=== PATIENT | female | born 1990 | race American Indian/Alaskan Native ===

== ENCOUNTER 2020-06-21 21:43 | Emergency (ER) | payer OTHER ==
[2020-06-21 22:26] LABS: Basophils # (Auto) 0.1 K/mm3 (0.0-0.1); Eosinophils # (Auto) 0.1 K/mm3 (0.0-0.4); Eosinophils % (Auto) 1.5 % (0.0-4.3); Hematocrit 33.8 % (30.3-42.9); Hemoglobin 11.3 gm/dl (10.1-14.3); Lymphocytes # (Auto) 2.5 K/mm3 (1.2-5.4); Lymphocytes % (Auto) 35.8 % (13.4-35.0); Mean Corpuscular HGB Conc 33 % (30-34); Mean Corpuscular Volume 82 fl (79-97); Monocytes # (Auto) 0.6 K/mm3 (0.0-0.8); Monocytes % (Auto) 8.1 % (0.0-7.3); Platelet Count 359 K/mm3 (140-440); Red Blood Count 4.11 M/mm3 (3.65-5.03); Red Cell Distribution Width 14.4 % (13.2-15.2)
--- NOTE | 2020-06-21 22:58 | Emergency Department Report ---
ED Female HPI - General Chief complaint: Vaginal Bleeding Stated complaint: 5 WEEKS ;POSSIBLE MISCARRIAGE Source: patient Mode of arrival: Ambulatory Limitations: No Limitations - History of Present Illness Initial comments: Patient is a A1 30-year-old -Chinese female who is approximately 4 weeks gestation who presents to the ED with complaint of acute onset vaginal bleeding for 1 hour. Patient states that had 2 positive tests at home 3 days ago and while driving around she started feeling a gush in her underwear and when she looked she realized that she was bleeding. Patient states that she came to the ED for evaluation. Patient states that her LMP was May 16 through the 2020. Patient denies dizziness, syncope, chest pain, abdominal pain, nausea and vomiting, diarrhea, dysuria, urinary frequency and urgency, back pain, cough, sore throat, shortness of breath. MD Complaint: vaginal bleeding, pelvic pain -: Sudden, hour(s) (1) Location: suprapubic, other (vaginal) Severity: mild Severity scale (0 -10): 0 Quality: cramping, dull Consistency: intermittent Improves with: none Worsens with: none Are you Now?: Yes (Approximately 4 weeks gestation) Associated Symptoms: denies other symptoms, vaginal bleeding. denies: vaginal discharge, abdominal pain, nausea/vomiting, fever/chills, dysuria, hematuria, rash, seizure, shortness of breath, syncope, weakness - Related Data Sexually active: Yes : 3 Para: 1 A: 1 Previous Rx's Medication Instructions Recorded Last Taken Type cephALEXin [Keflex] 500 mg PO Q8HR #30 cap 06/22/20 Unknown Rx Allergies Allergy/AdvReac Type Severity Reaction Status Date / Time No Known Allergies Allergy Unverified 06/21/20 21:59 ED Review of Systems ROS: Stated complaint: 5 WEEKS ;POSSIBLE MISCARRIAGE Other details as noted in HPI Constitutional: denies: chills, fever Eyes: denies: eye pain, eye discharge, vision change ENT: denies: ear pain, throat pain Respiratory: denies: cough, shortness of breath, wheezing Cardiovascular: denies: chest pain, palpitations Endocrine: no symptoms reported Gastrointestinal: denies: abdominal pain, nausea, diarrhea Genitourinary: abnormal menses (Vaginal bleeding). denies: urgency, dysuria, discharge Musculoskeletal: denies: back pain, joint swelling, arthralgia Skin: denies: rash, lesions Neurological: denies: headache, weakness, paresthesias Psychiatric: denies: anxiety, depression Hematological/Lymphatic: denies: easy bleeding, easy bruising ED Past Medical Hx - Past Medical History Previous Medical History?: Yes Additional medical history: Sickle Cell Trait - Surgical History Past Surgical History?: Yes Additional Surgical History: - Social History Smoking Status: Never Smoker Substance Use Type: None - Medications Home Medications: Home Medications Medication Instructions Recorded Confirmed Last Taken Type cephALEXin [Keflex] 500 mg PO Q8HR #30 cap 06/22/20 Unknown Rx ED Physical Exam - General Limitations: No Limitations General appearance: alert, in no apparent distress - Head Head exam: Present: atraumatic, normocephalic, normal inspection - Eye Eye exam: Present: normal appearance, PERRL, EOMI Pupils: Present: normal accommodation - ENT ENT exam: Present: normal exam, normal orophraynx, mucous membranes moist, TM's normal bilaterally, normal external ear exam - Neck Neck exam: Present: normal inspection, full ROM. Absent: tenderness - Respiratory Respiratory exam: Present: normal lung sounds bilaterally. Absent: respiratory distress, wheezes, rales, stridor, chest wall tenderness, accessory muscle use, prolonged expiratory - Cardiovascular Cardiovascular Exam: Present: regular rate, normal rhythm, normal heart sounds. Absent: systolic murmur, diastolic murmur, rubs, gallop - GI/Abdominal GI/Abdominal exam: Present: soft, normal bowel sounds. Absent: tenderness, guarding, rebound, hyperactive bowel sounds, hypoactive bowel sounds, organomegaly, mass - Bi-manual exam: Present: other (Pelvic exam deferred, patient prefers own [facility] physician) - Extremities Exam Extremities exam: Present: normal inspection, full ROM, normal capillary refill - Back Exam Back exam: Present: normal inspection, full ROM. Absent: tenderness, CVA tenderness (R), muscle spasm, paraspinal tenderness, vertebral tenderness - Neurological Exam Neurological exam: Present: alert, oriented X3, CN II-XII intact, normal gait, reflexes normal - Psychiatric Psychiatric exam: Present: normal affect, normal mood - Skin Skin exam: Present: warm, dry, intact, normal color. Absent: rash ED Course Vital Signs 06/21/20 21:54 Temperature 98.5 F Pulse Rate 82 Respiratory 18 Rate Blood Pressure 123/80 O2 Sat by Pulse 98 Oximetry ED Medical Decision Making - Lab Data Result diagrams: 06/21/20 22:10 06/21/20 23:58 - Medical Decision Making This is a A1 30-year-old -Chinese female who is approximately 4 weeks gestation who presents to the ED with complaint of acute onset vaginal bleeding for 1 hour. Patient states that had 2 positive tests at home 3 days ago and while driving around she started feeling a gush in her underwear and when she looked she realized that she was bleeding. Patient states that she came to the ED for evaluation. Patient states that her LMP was May 16 through the 2020. In the ED, patient is alert and oriented x3 and is not in distress. Lab test results were reviewed and showed hCG quant of 8.65, mild hypokalemia of 3.4 mmol/L, and urinalysis showed significant urinary tract infection characterized by positive nitrites and 4+ bacteriuria. Patient was treated in the ED with oral antibiotics Keflex 1 g p.o. x1. Given the fact that the patient's hCG quant was 8.65, no ultrasound was performed since the hCG level is too low to characterize any intrauterine at this time. The bleeding may be due to implantation or urinary tract infection. I therefore discussed patient's case with the ED attending physician Dr. Sanches agreed with the plan of care. Patient was therefore discharged home on antibiotics for UTI and was advised to follow-up with her [facility] physician in 3 to 5 days for reevaluation or return to the ED immediately if symptoms get worse. - Differential Diagnosis Threatened miscarriage; UTI; ovarian cyst; subchorionic bleed; ectopic preg Critical care attestation.: If time is entered above; I have spent that time in minutes in the direct care o f this critically ill patient, excluding procedure time. ED Disposition Clinical Impression: Threatened miscarriage in early , Acute urinary tract infection, Vaginal bleeding in patient after first trimester Disposition: DC-01 TO HOME OR SELFCARE Is pt being admited?: No Does the pt Need Aspirin: No Condition: Stable Instructions: Threatened Miscarriage, [id number], Urinary Tract Infection, Adult, [id number], Vaginal Bleeding During , First Trimester, [id number] Additional Instructions: Your lab test results showed a lower hCG quant of 8.65, which is characteristic of a very early . The lab test results also show significant urinary tract infection this may be the cause of your vaginal bleeding at this time. Therefore maintain a complete pelvic rest, with no heavy lifting or physical and strenuous activities or sexual activities, take medications as advised for urinary tract infection. Follow-up with your [facility] physician in 3 to 5 days for reevaluation or return to the ED immediately if your symptoms get worse. Prescriptions: cephALEXin [Keflex] 500 mg PO Q8HR #30 cap Referrals: LUCIO KAYE MD [Staff Physician] - 3-5 Days Forms: Work/School Release Form(ED) Time of Disposition: 04:10 Print Language: MALTESE
[2020-06-22 00:53] LABS: Alanine Aminotransferase 7 units/L (7-56); Albumin 4.2 g/dL (3.9-5); Blood Urea Nitrogen 11 mg/dL (7-17); Hemolysis Index 4
[2020-06-22 01:19] LABS: BUN/Creatinine Ratio 16
[2020-06-22 03:45] LABS: Bacteria,Urine 4+ /HPF (Negative); Bilirubin,Urine NEG (Negative); Blood,Urine LG (Negative); Color,Urine Yellow (Yellow); Hyaline Casts,Urine 1 /LPF; Mucus,Urine 1+ /HPF; Protein,Urine <15 mg/dL mg/dL (Negative)
[2020-06-22] MEDS ORDERED: cephALEXin 500 MG CAP PO ONE (03:59)
[2020-06-22 04:51] VITALS: BP 124/77
== END 2020-06-22 04:58 | disposition home or self-care (01) ==
LOC: ED 21:43
DX: O20.0 Threatened abortion (principal); O23.41 Unspecified infection of urinary tract in pregnancy, first trimester; Z3A.01 Less than 8 weeks gestation of pregnancy; Z98.890 Other specified postprocedural states; Z79.899 Other long term (current) drug therapy
CPT/HCPCS: 36415; 80053; 81001; 84702; 85025; 86900; 86901

== ENCOUNTER 2020-06-22 17:06 | Emergency (ER) | payer SELFPAY ==
--- NOTE | 2020-06-22 18:03 | Emergency Department Report ---
ED General Adult HPI - General Chief complaint: Vaginal Bleeding Stated complaint: INCREASED BLEEDING Time Seen by Provider: 06/22/20 17:52 Source: patient Mode of arrival: Ambulatory Limitations: No Limitations - Related Data Previous Rx's Medication Instructions Recorded Last Taken Type cephALEXin [Keflex] 500 mg PO Q8HR #30 cap 06/22/20 Unknown Rx Allergies Allergy/AdvReac Type Severity Reaction Status Date / Time No Known Allergies Allergy Unverified 06/21/20 21:59 ED Review of Systems ROS: Stated complaint: INCREASED BLEEDING Other details as noted in HPI ED Past Medical Hx - Past Medical History Previous Medical History?: Yes Additional medical history: Sickle Cell Trait, Threatening miscarriage - Surgical History Past Surgical History?: No Additional Surgical History: - Social History Smoking Status: Never Smoker Substance Use Type: None - Medications Home Medications: Home Medications Medication Instructions Recorded Confirmed Last Taken Type cephALEXin [Keflex] 500 mg PO Q8HR #30 cap 06/22/20 Unknown Rx ED Physical Exam - General Limitations: No Limitations ED Course Vital Signs 06/22/20 17:39 Temperature 98.2 F Pulse Rate 78 Respiratory 20 Rate Blood Pressure 112/70 O2 Sat by Pulse 100 Oximetry Critical care attestation.: If time is entered above; I have spent that time in minutes in the direct care of this critically ill patient, excluding procedure time. ED Disposition Condition: Stable
--- NOTE | 2020-06-22 19:35 | Emergency Department Report ---
ED HPI - General Chief complaint: Vaginal Bleeding Stated complaint: INCREASED BLEEDING Time Seen by Provider: 06/22/20 17:52 Source: patient Mode of arrival: Ambulatory Limitations: No Limitations - History of Present Illness Initial comments: 30-year-old -[place] female presents to the emergency room stating she is having worsening bleeding from her vaginal area. Patient was seen here last night for having 2 positive tests at home 3 days ago and while driving around she started feeling a gush in her underwear and when she looked she realized that she was bleeding. Patient reports she is gone through 2 pads today. Patient states that her LMP was May 16 through the 2020. Patient reports that she is currently being treated for urinary tract infection and has taken her first dose of Keflex today. Patient denies dizziness, syncope, chest pain, abdominal pain, nausea and vomiting, diarrhea, dysuria, urinary frequency and urgency, back pain, cough, sore throat, shortness of breath. Patient denies any pelvic or abdominal pain at this time. - Related Data Previous Rx's Medication Instructions Recorded Last Taken Type cephALEXin [Keflex] 500 mg PO Q8HR #30 cap 06/22/20 Unknown Rx Allergies Allergy/AdvReac Type Severity Reaction Status Date / Time No Known Allergies Allergy Unverified 06/21/20 21:59 ED Review of Systems ROS: Stated complaint: INCREASED BLEEDING Other details as noted in HPI ED Past Medical Hx - Past Medical History Previous Medical History?: Yes Additional medical history: Sickle Cell Trait, Threatening miscarriage - Surgical History Past Surgical History?: No Additional Surgical History: - Social History Smoking Status: Never Smoker Substance Use Type: None - Medications Home Medications: Home Medications Medication Instructions Recorded Confirmed Last Taken Type cephALEXin [Keflex] 500 mg PO Q8HR #30 cap 06/22/20 Unknown Rx ED Physical Exam - General Limitations: No Limitations General appearance: alert - Head Head exam: Present: atraumatic, normocephalic - Eye Eye exam: Present: normal appearance - ENT ENT exam: Present: normal exam - Neck Neck exam: Present: normal inspection, full ROM - Respiratory Respiratory exam: Present: normal lung sounds bilaterally. Absent: respiratory distress - Cardiovascular Cardiovascular Exam: Present: regular rate, normal rhythm. Absent: systolic murmur, diastolic murmur, rubs, gallop - GI/Abdominal GI/Abdominal exam: Present: soft, normal bowel sounds - Extremities Exam Extremities exam: Present: normal inspection, full ROM - Back Exam Back exam: Present: normal inspection - Neurological Exam Neurological exam: Present: alert, oriented X3, normal gait - Psychiatric Psychiatric exam: Present: normal affect, normal mood - Skin Skin exam: Present: warm, dry, intact, normal color. Absent: rash ED Course Vital Signs 06/22/20 17:39 Temperature 98.2 F Pulse Rate 78 Respiratory 20 Rate Blood Pressure 112/70 O2 Sat by Pulse 100 Oximetry ED Medical Decision Making - Medical Decision Making 30-year-old -[place] female presents to the emergency room stating she is having worsening bleeding from her vaginal area. Patient was seen here last night for having 2 positive tests at home 3 days ago and while driving around she started feeling a gush in her underwear and when she looked she realized that she was bleeding. Patient reports she is gone through 2 pads today. Patient states that her LMP was May 16 through the 2020. Patient reports that she is currently being treated for urinary tract infection and has taken her first dose of Keflex today. Patient denies dizziness, syncope, chest pain, abdominal pain, nausea and vomiting, diarrhea, dysuria, urinary frequency and urgency, back pain, cough, sore throat, shortness of breath. Patient denies any pelvic or abdominal pain at this time. H&H is stable. hCG from yesterday was 8.65 today hCG is 7.60. Spoke with Dr. Cr she recommends a OB ultrasound as ectopic can have a drop in hCG. I do not feel that there is going to be able to see any IVP as her hCG level are so low. Patient currently has no pain. Blood bank shows she is A+. Critical care attestation.: If time is entered above; I have spent that time in minutes in the direct care of this critically ill patient, excluding procedure time. ED Disposition Clinical Impression: Threatened miscarriage in early Disposition: DC-01 TO HOME OR SELFCARE Is pt being admited?: No Does the pt Need Aspirin: No Condition: Stable Instructions: Threatened Miscarriage Additional Instructions: Ultrasound is negative for any ectopic or intrauterine gestation. Your hCG level has dropped from 8.65 to now 7.60 with a steady H&H that shows no anemia. I recommend that you follow-up in 72 hours with a [facility]. Referrals: PRIMARY CARE, [Primary Care Provider] - 3-5 Days [facility] [Provider Group] - 3-5 Days Forms: Work/School Release Form(ED)
--- NOTE | 2020-06-22 20:51 | Ultrasound Report ---
ULTRASOUND OBSTETRIC INDICATION / CLINICAL INFORMATION: bleeding . Clinical Gestational Age (GA): 5.1 weeks.days TECHNIQUE: Transabdominal. COMPARISON: None available. FINDINGS: UTERUS: Measures 7.1 x 3.8 x 4.3 cm. Satisfactory sonographic appearance. Endometrial thickness is 5 mm in this premenopausal patient. No intrauterine gestation is visualized. ADNEXA: No significant abnormality. FREE FLUID: None. ADDITIONAL FINDINGS: None. IMPRESSION: 1. No evidence intrauterine or extrauterine gestation on this examination. Recommend clinical correla tion and further follow-up/evaluation, as warranted. Consider serial beta hCG, as warranted. Signer Name: Cole Rider MD Signed: 06/22/2020 8:46 PM Workstation Name: [id number]
[2020-06-22 21:36] VITALS: BP 116/76
== END 2020-06-22 21:36 | disposition home or self-care (01) ==
LOC: ED 17:06
DX: O20.0 Threatened abortion (principal); Z79.899 Other long term (current) drug therapy
CPT/HCPCS: 36415; 76801; 84702